=== PATIENT | female | born 1985 | race Caucasian/White ===

== ENCOUNTER 2021-08-19 17:01 | Emergency (ER) | payer OTHER, SELFPAY ==
[2021-08-19 17:12] VITALS: BP 142/83; PULSE 105; RESP 18; TEMP 36.8; O2SAT 100
--- NOTE | 2021-08-19 17:49 | ED.URI ---
HPI - URI/Sore Throat General Chief Complaint: Upper Respiratory Infection Stated Complaint: Cough,Congestion,Sore Throat,Body Aches,Headache Time Seen by Provider: 08/19/21 17:50 Source: patient, family and RN notes reviewed Mode of arrival: ambulatory Limitations: no limitations History of Present Illness HPI Narrative: Natividad is a 36-year-old female patient who ambulated into the [facility] with complaints of cough, sore throat, and congestion. Patient states the hacking cough started on Friday with clear sputum. Patient states she is coughing up green sputum. Patient states it started with sinus congestion and she feels like it is draining down the back of her throat. She has been using Robitussin at home. Patient states she has a past history of pneumonia and bronchitis frequently. MD elicited complaint: cough Related Data Home Medications Medication Instructions Recorded Confirmed No Home Medications 08/19/21 08/19/21 Allergies Allergy/AdvReac Type Severity Reaction Status Date / Time sulfamethoxazole Allergy Mild Hives / Verified 08/19/21 17:57 Red Face trimethoprim Allergy Mild Hives / Verified 08/19/21 17:57 Red Face Review of Systems Review of Systems: CONSTITUTIONAL: Denies body aches, chills, or sweats + fever EYES: Denies visual changes, redness, or discharge. ENT: Denies rhinorrhea,+ congestion,+ sore throat, denies otalgia. CARDIOVASCULAR: Denies chest pain, palpitations, or edema. RESPIRATORY: + cough denies dyspnea. GASTROINTESTINAL: Denies abdominal pain, nausea, vomiting, or diarrhea. GENITOURINARY: Denies dysuria or hematuria. SKIN: Denies rash, itching, or wounds. MUSCULOSKELETAL: + back pain, joint pain, or myalgia. NEUROLOGIC: Denies headache, numbness, tingling, or weakness. PSYCH: Denies depression or anxiety. All systems reviewed & are unremarkable except as noted in HPI and below Exam Narrative: GENERAL: Well-appearing, well-nourished, and in no acute distress. HEAD: Normocephalic, atraumatic. EYES: EOMI. No redness or drainage. Conjunctivae normal. ENT: Mucous membranes pink and moist. Nares clear. No rhinorrhea. TMs opaque, fluid filled, mild bulging. Throat: 3-4+ tonsils, erythemic, no exudate noted. Moderate post nasal drainage. Uvula midline. NECK: Normal AROM. Supple. Bilateral anterior cervical lymphadenopathy. CHEST: No respiratory distress. Clear to auscultation; harsh hacky productive cough noted on exam. MUSCULOSKELETAL: No bony tenderness. EXTREMITIES: Normal range of motion. No edema. SKIN: Warm, dry, no rash. Capillary refill normal. Normal skin turgor. NEURO: No focal deficits. Alert and oriented x3. Gait steady. PSYCH: Normal affect. No signs of depression or anxiety. Course Vital Signs Vital signs: Vital Signs Temperature 36.8 C 08/19/21 17:12 Pulse Rate 105 H 08/19/21 17:12 Respiratory Rate 18 08/19/21 17:12 Blood Pressure 142/83 H 08/19/21 17:12 Pulse Oximetry 100 08/19/21 17:12 Temperature 36.8 C 08/19/21 17:12 Pulse Rate 105 H 08/19/21 17:12 Respiratory Rate 18 08/19/21 17:12 Blood Pressure 142/83 H 08/19/21 17:12 Pulse Oximetry 100 08/19/21 17:12 Reviewed. Pt has been instructed to follow up with her PCP regarding her elevated blood pressure today. MDM - URI/Sore Throat MDM Narrative Medical decision making narrative: Patient has harsh productive cough with green sputum. Patient states she has had a fever at home. Patient complains of a sore throat rapid strep is negative and will be sent for throat culture. Patient states she does not need an albuterol inhaler. Differential Diagnosis Differential diagnosis: Likely upper respiratory infection, sinusitis, bronchitis and pharyngitis Medical Records Attestation: I reviewed the patient's medical records. Lab Data Attestation: I reviewed the patient's lab results. Labs: Lab Results 08/19/21 Range/Units 17:30 POC SARS CoV-2 Ag Negative (
== END 2021-08-19 18:07 | disposition home or self-care (01) ==
PROVIDERS: Emergency Provider Nurse Practitioner Family
DX: J40 Bronchitis, not specified as acute or chronic (principal); Z20.822 Contact with and (suspected) exposure to COVID-19
CPT/HCPCS: 87081; 87426; 87880; 99213; C9803; G0463

== ENCOUNTER 2021-11-30 13:11 | Emergency (ER) | payer OTHER, SELFPAY ==
--- NOTE | 2021-11-30 13:15 | ED.URI ---
HPI - URI/Sore Throat General Chief Complaint: Upper Respiratory Infection Stated Complaint: chavez/sore throat Time Seen by Provider: 11/30/21 13:23 Source: patient and RN notes reviewed Mode of arrival: ambulatory Limitations: no limitations History of Present Illness HPI Narrative: 36-year-old female presents concern for sore throat, headache that started last night. She reports postnasal drainage. She denies cough, nasal congestion, rhinorrhea, shortness of breath. She is not vaccinated for COVID. She denies any [id number] intervention MD elicited complaint: sore throat Related Data Allergies Allergy/AdvReac Type Severity Reaction Status Date / Time sulfamethoxazole Allergy Mild Hives / Verified 11/30/21 13:22 Red Face trimethoprim Allergy Mild Hives / Verified 11/30/21 13:22 Red Face Review of Systems Review of Systems: CONSTITUTIONAL: Reports malaise EYES: Denies visual changes, redness, or discharge. ENT: Denies rhinorrhea, congestion, sinus pain, otalgia. Reports sore throat. CARDIOVASCULAR: Denies chest pain, palpitations, or edema. RESPIRATORY: Denies cough. Denies dyspnea. GASTROINTESTINAL: Denies abdominal pain, nausea, vomiting, diarrhea SKIN: Denies rash or itching. MUSCULOSKELETAL: Denies myalgia. NEUROLOGIC: Reports headache. All systems reviewed & are unremarkable except as noted in HPI and below PMFSH Comments At time of signature, agree with nursing past medical, surgical, social and family history. There is no relevant family history pertinent to the presenting complaint Exam Narrative: GENERAL: Well-appearing, well-nourished, and in no acute distress. HEAD: Normocephalic EYES: PERRLA, conjunctivae clear ENT: Nares clear. Mucous membranes moist. TM pearly magdaleno with dull light reflex bilaterally; no tragal tenderness. Oropharynx erythematous without lesions. Tonsils enlarged and without exudate, no drooling, no hoarseness, no trismus, uvula midline. NECK: Supple. No lymphadenopathy CHEST: Clear to auscultation, breath sounds equal. No wheezing, rhonchi, rales, or stridor. No respiratory distress, speaks in full sentences. HEART: Regular rate and rhythm. No murmur heard. SKIN: Warm, dry, no rash. NEURO: Alert and oriented x3. PSYCH: Normal mood and affect Course Course Emergency Course: Patient is aware of diagnosis, understands and agrees to treatment plan. Anticipatory guidance given. Patient agrees to follow-up as directed and is aware of reasons to seek care at the emergency department. Portions of this record may have been created with voice recognition software Level of Care: Express Care Visit Vital Signs Vital signs: Reviewed. MDM - URI/Sore Throat MDM Narrative Medical decision making narrative: Differential diagnosis considered: Bailey virus, strep pharyngitis, allergic rhinitis, upper respiratory tract infection, sinusitis, rhinosinusitis, nasopharyngitis. viral pharyngitis, otitis media, otitis externa, pneumonia, bronchitis, viral cough syndrome, viral syndrome, and influenza. Exam findings show no acute concerns or changes; patient is non-toxic appearing and is in no distress. Patient is appropriate for outpatient treatment and follow-up. Lab Data Attestation: I reviewed the patient's lab results. Critical Care Time Critical Care Time Critical Care Time: No Discharge Plan Discharge Clinical Impression: Upper respiratory infection Qualifiers: URI type: unspecified viral URI Qualified Code(s): J06.9 - Acute upper respiratory infection, unspecified Patient Disposition: Home, Self-Care Condition: Stable Instructions: Upper Respiratory Infection (ED) Additional Instructions: Your rapid COVID and FLU are negative Your rapid strep swab was negative today at [facility]. A throat culture will be sent to the laboratory for further testing. If the test is positive, you will receive a phone call within 48 hours and an appropriate antibiotic will be initiated at [place]
[2021-11-30 13:20] VITALS: BP 127/80; PULSE 123; RESP 20; TEMP 37.7; O2SAT 100
== END 2021-11-30 14:01 | disposition home or self-care (01) ==
PROVIDERS: Emergency Provider Nurse Practitioner
DX: J06.9 Acute upper respiratory infection, unspecified (principal); Z20.822 Contact with and (suspected) exposure to COVID-19
CPT/HCPCS: 87081; 87426; 87804; 87880; 99213; C9803; G0463